=== PATIENT | male | born 1970 | race Caucasian/White ===

== ENCOUNTER 2021-09-18 16:47 | Emergency (ER) | payer OTHER, SELFPAY ==
--- NOTE | ~2021-09-18 | XR_ITS ---
EXAM: XR abdomen/kub 1V DATE: 09/18/2021 18:10 HISTORY: right flank pain X 2 WKS,PAIN POSTERIOR BACK INTO GROIN AREA . COMPARISON: None available. FINDINGS: Clear lung bases. Normal bowel gas pattern. No organomegaly. No abnormal abdominal calcifi cation. Lumbar scoliosis, otherwise the regional bones and soft tissues normal for age. IMPRESSION: No radiographic evidence of obstruction or ileus. No abnormal abdominal calcification. Reviewed, dictated and finalized at location K. IMPRESSION: No radiographic evidence of obstruction or ileus. No abnormal abdom inal calcification.
[2021-09-18 16:54] VITALS: BP 137/73; PULSE 78; RESP 20; TEMP 36.8; O2SAT 100
[2021-09-18 17:29] LABS: Basophils Percent Auto 0.4 % (0.2-1.2); Eosinophils Absolute Auto 0.1 K/mm3 (0-0.3); Eosinophils Percent Auto 1.9 % (0-4.4); Hematocrit 39.2 % (42.0-52.0); Hemoglobin 13.3 g/dL (14.0-18.0); Immature Granulocyte Absolute 0.02 K/mm3 (0.00-0.031); Immature Granulocyte Percent A 0.3 % (0-0.5); Lymphocytes Absolute Auto 2.06 K/mm3 (0.9-3.2); Lymphocytes Percent Auto 30.7 % (18.3-44.2); Mean Corpuscular HGB Conc 33.9 g/dl (32-36); Mean Corpuscular Volume 91.4 fl (80-100); Mean Platelet Volume 9.8 fl (7.4-10.4); Monocytes Absolute Auto 0.5 K/mm3 (0.1-0.6); Monocytes Percent Auto 6.9 % (2.6-8.5); Neutrophils Percent Auto 59.8 % (45.5-73.1); Platelet Count Result 193 k/mm3 (150-375); Red Blood Count 4.29 M/mm3 (4.6-6.20); Red Cell Distribution Width 12.7 % (11.5-14.5); White Blood Count 6.7 K/mm3 (4.5-10.0)
[2021-09-18 17:40] LABS: Alanine Aminotransferase 17 U/L (6-50); Albumin Level 4.1 g/dL (3.5-5.1); Alkaline Phosphatase 97 U/L (38-126); Anion Gap 4 mmol/L (8-16); Aspartate Amino Transferase 28 U/L (17-59); Bilirubin,Total 0.3 mg/dL (0.2-1.3); Blood Urea Nitrogen 16 mg/dL (9-20); Calcium 8.7 mg/dL (8.4-10.2); Carbon Dioxide 26 mmol/L (22-30); Chloride 108 mmol/L (98-107); Estimated CRCL calculation 72 ml/min; Estimated Glomerular Filt Rate > 60; Glucose 86 mg/dL (65-110); Lipase 81 U/L (23-300); Potassium 4.2 mmol/L (3.4-5.0); Sodium 138 mmol/L (137-145)
[2021-09-18 17:55] LABS: Appearance Urine Clear (Clear); Bilirubin Urine Negative (Negative); Blood Urine Negative (Negative); Color Urine Yellow (Yellow); Glucose Urine UA Negative (Negative); Ketones Urine Trace mg/dL (Negative); Leukocyte Esterase Ur Trace LEU/UL (Negative); Nitrate Urine Negative (Negative); Protein Urine Negative (Negative); Specific Grav Ur 1.025 (1.001-1.035)
[2021-09-18 17:59] LABS: Mucus Urine Rare /lpf; RBC Urine 0-2 /hpf (0-2); Squamous Epithelial Cell Urine Rare /hpf (Few); WBC Urine 0-3 /hpf
[2021-09-18 18:01] LABS: Add Urine Microscopic? YES
--- NOTE | 2021-09-18 18:44 | ED.BACK ---
HPI - Back Pain/Injury General Chief Complaint: Back Pain/Injury Stated Complaint: back, groin pain Time Seen by Provider: 09/18/21 17:19 Source: patient Mode of arrival: ambulatory Limitations: no limitations History of Present Illness HPI Narrative: This is 51 year old male who presents for evaluation of right lower back pain. PAtient states he has been having intermittent right lower back pain for several weeks. He also reports intermittent right groin pain. He denies associated nausea, vomiting, fever, chills, hematuria. He has not been taking anything for pain. He does not have back pain . He states he came in today for a work day. Related Data Allergies Allergy/AdvReac Type Severity Reaction Status Date / Time acetaminophen Allergy Intermediate Nausea Verified 10/15/17 11:30 hydrocodone Allergy Intermediate Nausea Verified 10/15/17 11:30 Review of Systems Review of Systems: All systems reviewed & are unremarkable except as noted in HPI and below Constitutional: Constitutional: Denies fatigue and Denies fever(s) ENT: Denies dysphagia Cardiovascular: Cardiovascular: Denies chest pain and Denies rapid heart rate Respiratory: Respiratory: Denies chest congestion and Denies cough Gastrointestinal: Gastrointestinal: Denies abdominal pain, Denies bloating and Denies constipation Musculoskeletal: Musculoskeletal: Reports back pain Integumentary/Breasts: Skin/Breast: Denies pruritus Neurologic: Denies focal weakness Endocrine: Endocrine: Denies excessive sweating PMFSH Past Medical History Medical History (Updated 09/18/21 @ 19:17 by Mary Hurst MD) Kidney stones Surgical History Surgical History (Updated 09/18/21 @ 18:58 by Mary Hurst MD) No pertinent past surgical history Social History Social History (Updated 09/18/21 @ 18:58 by Mary Hurst MD) Smoking packs per day: 1 Smoking cigarettes per day: 20.0 Smoking status: Current every day smoker Exam Const: General: alert Nutritional Appearance: thin Orientation/consciousness: patient oriented x3 Limitations: no limitations Eyes: Conjunctivae: conjunctivae normal EOM: EOMs intact bilaterally Chest: Chest palpation & inspection: normal inspection of the chest Resp: Effort & Inspection: normal respiratory effort Auscultation: clear to auscultation bilaterally Cardio: Rate: regular rate Rhythm: regular rhythm Heart sounds: no murmurs GI: GI Palp: Yes Soft to palpation, No Tenderness to palpation present (GI), No Guarding due to palpation present (GI) and No Rigid due to palpation Auscultation: normal bowel sounds : General: Yes no CVA tenderness Male General Exam: Yes normal external exam Penis: Yes normal penis Scrotum: scrotum normal Back/Spine/Pelvis: Back: no CVA tenderness Skin: General skin exam: normal color Rashes: no rashes Wounds: no wounds Neuro: General: patient oriented x3, moves all extremities and CN's II-XI intact bilaterally Extrem: General: normal to inspection Psych: Mental Status: mental status grossly normal Affect: normal affect Attitude: cooperative Course Reevaluation(s) Reevaluation #1: I Discusssed with patient that labs and xray are unremarkable. No stone seen on KUB. Given patient does not have pain , hematuria or lab abnormalities I do not think CT needed at this time. Patient understands. Date: 09/18/21 Time: 19:01 Vital Signs Vital signs: Vital Signs Temperature 98.2 F 09/18/21 16:54 Pulse Rate 78 09/18/21 16:54 Respiratory Rate 20 09/18/21 16:54 Blood Pressure 137/73 09/18/21 16:54 Pulse Oximetry 100 09/18/21 16:54 Oxygen Delivery Room Air 09/18/21 16:54 Temperature 98.3 F 09/18/21 19:20 Pulse Rate 78 09/18/21 19:20 Respiratory Rate 16 09/18/21 19:20 Blood Pressure 130/70 09/18/21 19:20 Pulse Oximetry 97 09/18/21 19:20 Oxygen Delivery Room Air 09/18/21 16:54 MDM - Back Pain/Injury Lab Data Att
[2021-09-18 19:20] VITALS: BP 130/70; PULSE 78; RESP 16; TEMP 36.8; O2SAT 97
== END 2021-09-18 19:20 | disposition home or self-care (01) ==
PROVIDERS: Physician Assistant; Emergency Provider General Practice
DX: M54.50 Low back pain, unspecified (principal); Z87.442 Personal history of urinary calculi; F17.210 Nicotine dependence, cigarettes, uncomplicated
CPT/HCPCS: 36415; 74018; 80053; 81001; 83690; 85025; 99283